=== PATIENT | female | born 1950 | race African-American/Black ===

== ENCOUNTER 2016-07-01 10:17 | Day surgery (SDC) | payer OTHER ==
[2016-06-26 12:02] LABS: HEMATOCRIT 35.7 % (37.0-47.0); HEMOGLOBIN 11.9 g/dL (12.0-16.0); MCH 29.5 PG (27-31); MCHC 33.3 g/dL (33-37); MCV 88.4 FL (81-99); MPV 10.1 FL (7.4-10.4); RBC 4.04 XMIL (4.2-5.4)
[2016-06-26 12:13] LABS: INR 0.97; PROTIME 10.3 Seconds (9.2-11.7); PTT 26.6 Seconds (22.0-36.0)
[2016-06-26 12:24] LABS: AGAP 12; BUN 15 mg/dL (8-22); CHLORIDE 104 mmol/L (98-107); COSMO 278; POTASSIUM 4.1 mmol/L (3.5-5.1); SODIUM 139 mmol/L (136-145); TCO2 23 mmol/L (25-35)
[2016-07-01] MEDS ORDERED: REGLAN ONE (10:22)
[2016-07-01] MEDS ORDERED: LR 1,000 ML ONE ×4 (10:22→14:06)
[2016-07-01] MEDS ORDERED: KEFZOL 2 GM/D5W 50 ML ONE (10:23)
[2016-07-01] MEDS: PEPCID ONE ×3 (10:35→10:37)
[2016-07-01] MEDS ORDERED: PEPCID ONE (10:36)
[2016-07-01] MEDS ORDERED: SENSORCAINE 0.25%/EPI 1:200,000 ONE (11:54)
[2016-07-01] MEDS ORDERED: FENTANYL ONE (13:59)
[2016-07-01] MEDS ORDERED: VERSED ONE (14:00)
[2016-07-01] MEDS ORDERED: DIPRIVAN 1% ONE (14:00)
[2016-07-01] MEDS ORDERED: QUELICIN (DOSE) ONE (14:05)
[2016-07-01] MEDS ORDERED: XYLOCAINE-MPF 2% ONE (14:05)
[2016-07-01] MEDS ORDERED: DECADRON ONE (14:05)
[2016-07-01] MEDS ORDERED: ZEMURON ONE (14:05)
[2016-07-01] MEDS ORDERED: ZOFRAN ONE (14:05)
[2016-07-01] MEDS: MORPHINE ONE ×2 (14:16→14:34)
[2016-07-01] MEDS: OFIRMEV 1000 MG/ISOTONIC SOLN 200 ML ONE ×2 (14:41→14:45)
[2016-07-01] MEDS ORDERED: ULTRAM PO PRN (15:06)
[2016-07-01] MEDS ORDERED: ZOFRAN IV PRN (15:06)
[2016-07-01] MEDS: OFIRMEV 1000 MG/ISOTONIC SOLN 100 ML IV SCH (20:01)
[2016-07-01] MEDS: PERIDEX MT SCH (20:04)
[2016-07-01] MEDS: LR 1,000 ML IV SCH (20:24)
--- NOTE | 2016-07-01 22:12 | OPERATIVE NOTE ---
PROCEDURE DATE: 07/01/2016 PREOPERATIVE DIAGNOSES: Appendiceal mucocele. POSTOPERATIVE: Appendiceal mucocele. PROCEDURE PERFORMED: Laparoscopic appendectomy. ANESTHESIA: General. ESTIMATED BLOOD LOSS: 5 mL. SPECIMENS: Appendix. ASSISTANTS: Alex Reddy MD was present to the dilated inflamed nature of the appendix and there were also adhesions from lower midline incision that he has facilitated lysis of. OPERATIVE FINDINGS: There was omental adhesion to the lower midline from a previous hysterectomy incision. There was a very dilated and firm appendix that was not significantly adherent to other structures in the usual location with a normal base and a normal cecum. There was no evidence of liver lesions or peritoneal lesions. OPERATIVE NOTE: Risks, benefits, alternatives discussed with the patient, she consented to the procedure. She was taken to the operating room, placed in supine position. General anesthesia was induced without complication. Preincisional antibiotics were administered. A Sherman catheter was placed. Her abdomen was prepped with chlorhexidine solution, draped in usual fashion. Time- out was performed between Nursing, Surgical, Anesthesia staff. All agreed on procedure to be performed. She had a lower midline incision. As such, we made an incision just above the umbilicus in the midline, carried this dissection down to the level of fascia, elevated the umbilical stalk and made an incision in the fascia and entered in a controlled fashion. We placed 12 mm Justa trocar and insufflated the abdomen. She tolerated this. After inspecting the abdomen, we noticed that she had omental adhesions of the lower midline and the left lower quadrant was obscured by this. As such, we placed a 5 mm trocar in the right upper quadrant and the right lower quadrant and bluntly took down these adhesions. This provided adequate exposure for us to place a left lower quadrant 12 mm trocar and a suprapubic 5 mm trocar. This was all done after infiltration of the peritoneum. We then placed the patient in Trendelenburg position, left side down. Identified the appendix, elevated this. It was very dilated. We made care to not perforate the appendix and this was done successfully to prevent seeding of mucous producing cells throughout the abdomen. Using the LigaSure device, we began mobilizing the adhesions to the appendix and the mesoappendix, up to and created a window at the base of the appendix. The cecum was normal. The base of the appendix was nondilated and normal as well. After creating this window bluntly, we used a 30 mm gold load stapler to divide the base of the appendix. One fire divided this appendix stump and then there was a small nubbin of tissue lateral to this that we divided again with a 2nd fire the stapler. We then used the LigaSure to divide the mesoappendix completely excising and resecting the appendix in its entirety without rupturing. We placed this in an EndoCatch bag. We then irrigated the abdomen, confirmed hemostasis. After satisfactorily inspecting the abdomen, we used a Kenji Porter 0 Vicryl suture to close the left lower quadrant with 12 mm trocar, desufflated the abdomen. We did have to make the fascial incision larger to remove the large appendix out of the abdomen, but this was done successfully, again, with care to prevent rupture of the appendix. We closed the fascia with 0 Vicryl sutures in interrupted fashion, skin with 4-0 Monocryl. She tolerated procedure well. We removed the Sherman. We plan to admit her tonight. I have spoke with the family.
[2016-07-02] MEDS: LR 1,000 ML IV SCH (03:55)
[2016-07-02] MEDS: OFIRMEV 1000 MG/ISOTONIC SOLN 100 ML IV SCH ×2 (03:56→08:25)
[2016-07-02 07:59] VITALS: BP 159/77
[2016-07-02] MEDS: PERIDEX MT SCH (08:25)
--- NOTE | 2016-07-03 08:17 | DISCHARGE SUMMARY ---
ADMISSION DATE: 07/01/2016 DISCHARGE DATE: 07/02/2016 HISTORY OF PRESENT ILLNESS: This is a 66-year-old female who was incidentally found to have a appendiceal mucocele. This was found during workup of lower GI bleed with the source unrevealing. Colonoscopy showed no intraluminal lesions and appendectomy is indicated for diagnosis and treatment. HOSPITAL COURSE: Following this she was seen in the preoperative area and was cleared for the above surgery by anesthesia and myself. For details of the operation, please see dictated operative note. Postoperatively she was admitted to the floor. Diet was advanced. Her pain was controlled. She had minimal nausea. She was able to void without difficulty. On the morning of her discharge she was ambulating. Her incisions all looked okay and she had minimal pain. She was afebrile with no tachycardia. She was felt safe for discharge home at this time. FOLLOWUP APPOINTMENTS: Follow up with me in the next 1-2 weeks. DISCHARGE MEDICATION: I gave her a prescription for tramadol and Colace. DISCHARGE INSTRUCTIONS: She will call my office with any increased abdominal pain, fevers, vomiting, or any incisional concerns. DISCHARGE DIET: As tolerated. DISCHARGE ACTIVITY: As tolerated but avoid heavy lifting for the next couple weeks, until she is seen in my office.
== END 2016-07-02 09:01 | disposition home or self-care (01) ==
LOC: OPS 10:17 → UNDOADMOB 14:07 → 4N 14:07 → OPS 07-02 09:01 → UNDODISOB 07-02 09:01
PROVIDERS: ATTEND Surgery
DX: D12.1 Benign neoplasm of appendix (principal)
CPT/HCPCS: 80048; 85027; 85610; 85730; 88304; 88313; 94761; 94799; J0131; J0330; J0690; J1100; J2250; J2270; J2405; J3010; J7120